=== PATIENT | male | born 1935 | race Caucasian/White ===

== ENCOUNTER → 2017-11-24 | Outpatient (REF) | payer MEDICARE ==
[2017-11-25 14:02] LABS: ALBUMIN % 51.8 % (55.8-66.1); ALPHA-1-GLOBULIN % 3.7 % (2.9-4.9); ALPHA-2-GLOBULINS % 10.1 % (7.1-11.8)
[2017-11-25 14:03] LABS: ALBUMIN 3.63 GM/DL (3.29-5.55); ALPHA-1-GLOBULINS 0.26 GM/DL (0.17-0.41); ALPHA-2-GLOBULINS 0.71 GM/DL (0.42-0.99); BETA-1-GLOBULINS 0.36 GM/DL (0.28-0.60); BETA-1-GLOBULINS % 5.1 % (4.7-7.2); BETA-2-GLOBULINS 0.25 GM/DL (0.19-0.55); BETA-2-GLOBULINS % 3.5 % (3.2-6.5); GAMMA GLOBULIN % 25.8 % (11.1-18.8); GAMMA GLOBULINS 1.81 GM/DL (0.65-1.58)
[2017-11-27 00:14] LABS: FREE KAPPA LIGHT CHAINS SERUM 93.8 mg/L (3.3-19.4); KAPPA/LAMBDA RATIO SERUM 2.68 (0.26-1.65)
== END ==
LOC: M LAB REF 17:43
DX: D47.2 Monoclonal gammopathy (principal)
CPT/HCPCS: 84165

== ENCOUNTER → 2017-12-21 | Outpatient (REF) | payer MEDICARE ==
[2017-12-21 19:28] LABS: TOTAL PROTEIN 7.2 GM/DL (6.4-8.2)
[2017-12-22 12:06] LABS: ALBUMIN 3.72 GM/DL (3.29-5.55); ALBUMIN % 51.6 % (55.8-66.1); ALPHA-1-GLOBULIN % 3.9 % (2.9-4.9); ALPHA-1-GLOBULINS 0.28 GM/DL (0.17-0.41); ALPHA-2-GLOBULINS 0.69 GM/DL (0.42-0.99); ALPHA-2-GLOBULINS % 9.6 % (7.1-11.8); BETA-1-GLOBULINS 0.34 GM/DL (0.28-0.60); BETA-1-GLOBULINS % 4.7 % (4.7-7.2); BETA-2-GLOBULINS 0.25 GM/DL (0.19-0.55); BETA-2-GLOBULINS % 3.5 % (3.2-6.5); GAMMA GLOBULIN % 26.7 % (11.1-18.8); GAMMA GLOBULINS 1.92 GM/DL (0.65-1.58)
[2017-12-24 00:07] LABS: FREE KAPPA LIGHT CHAINS SERUM 79.2 mg/L (3.3-19.4); FREE LAMBDA LIGHT CHAINS SERUM 31.6 mg/L (5.7-26.3); KAPPA/LAMBDA RATIO SERUM 2.51 (0.26-1.65)
== END ==
LOC: M LAB REF 17:31
DX: Z00.00 Encounter for general adult medical examination without abnormal findings (principal)
CPT/HCPCS: 84165